=== PATIENT | male | born 1990 ===

== ENCOUNTER 2024-05-21 23:50 | Emergency (ER) | payer OTHER ==
[~2024-05-21] VITALS: Ht 177.8 cm; Wt 86.2 kg
[2024-05-22] MEDS ORDERED: ACETAMINOPHEN 500 MG TABLET PO ONE (00:15)
[2024-05-22] MEDS ORDERED: METOCLOPRAMIDE HCL 10 MG TABLET PO ONE (00:15)
[2024-05-22] MEDS ORDERED: ACETAMINOPHEN 500 MG TABLET ONE (00:21)
[2024-05-22] MEDS ORDERED: METOCLOPRAMIDE HCL 10 MG TABLET ONE (00:22)
[2024-05-22] MEDS: SUMATRIPTAN SUCCINATE 6 MG/0.5 ML VIAL SQ ONE (00:28)
[2024-05-22] MEDS: ACETAMINOPHEN 500 MG TABLET PO ONE (00:33)
[2024-05-22] MEDS: METOCLOPRAMIDE HCL 10 MG TABLET PO ONE (00:33)
[2024-05-22 00:40] LABS: BASOPHILS # (AUTO) 0.1 K/UL (0.0-0.2); BASOPHILS % (AUTO) 0.9 % (0.0-2.0); DIFFERENTIAL COMMENT 1; EOSINOPHILS # (AUTO) 0.2 K/uL (0.0-0.7); HEMOGLOBIN 13.4 g/dL (12.5-16.3); LYMPHOCYTES # (AUTO) 2.1 K/uL (0.8-4.8); LYMPHOCYTES % (AUTO) 35.5 % (20.5-51.5); MEAN CORPUSCULAR HEMOGLOBIN 30.1 uug (23.8-33.4); MEAN CORPUSCULAR HGB CONC 34 g/dL (32.5-36.3); MEAN CORPUSCULAR VOLUME 87.8 fL (73.0-96.2); MONOCYTES # (AUTO) 0.3 K/uL (0.1-1.30); MONOCYTES % (AUTO) 5.6 % (0.0-11.0); NEUTROPHILS # (AUTO) 3.2 K/uL (1.8-8.9); PLATELET COUNT (AUTO) 141 K/uL (152-348); RED BLOOD CELL COUNT(AUTO) 4.44 MIL/uL (4.06-5.63); RED CELL DISTRIBUTION WIDTH 12.4 % (12.1-16.2); WHITE BLOOD COUNT (AUTO) 5.8 K/uL (3.6-10.2)
[2024-05-22 00:41] LABS: ERYTHROCYTE SEDIMENTATION RATE 3 MM/HR (0-15)
[2024-05-22 01:00] LABS: CALCIUM 8.8 mg/dL (8.5-10.1); CREATININE 1.2 mg/dL (0.6-1.3); POTASSIUM 4.1 mmol/L (3.5-5.1)
[2024-05-22 01:05] LABS: ALBUMIN 4.1 g/dL (3.4-5.0); BILIRUBIN,TOTAL 0.8 mg/dL (0.2-1.0); TOTAL PROTEIN, SERUM 7.7 g/dL (6.4-8.2)
[2024-05-22 01:27] VITALS: BP 145/73; O2SAT 98
== END 2024-05-22 01:22 | disposition home or self-care (01) ==
LOC: ER 23:56
DX: R51.9 Headache, unspecified (principal); R03.0 Elevated blood-pressure reading, without diagnosis of hypertension
CPT/HCPCS: 99285; 70450; 80053; 85025; 85651; 36415; 96372; J3030; A4606; A4663; A9150; J8597